=== PATIENT | female | born 1995 | race Two or more races ===

== ENCOUNTER 2018-10-14 14:08 | Emergency (ER) | payer SELFPAY ==
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
--- NOTE | 2018-10-14 16:17 | CR ---
Indication: Injury and pain Technique: Left femur 4 views Comparison: None Findings: Bones: Alignment is normal. No fractures or bone lesions. Joint spaces: Unremarkable. Soft tissues: Unremarkable. Impression: No sign of acute injury. Dictated by Jorge L Timmons MD @ Oct 14 2018 4:13PM Signed by Dr. Jorge L Timmons @ Oct 14 2018 4:15PM
== END 2018-10-14 15:50 | disposition home or self-care (01) ==
LOC: MW.ED 14:08
DX: M79.652 Pain in left thigh (principal); V49.49XA Driver injured in collision with other motor vehicles in traffic accident, initial encounter; Y92.410 Unspecified street and highway as the place of occurrence of the external cause
CPT/HCPCS: 73552-26-LT; 73552-LT; 99284-25

== ENCOUNTER 2018-11-17 15:45 | Emergency (ER) | payer SELFPAY ==
[2018-11-17] MEDS ORDERED: Albuterol/Ipratropium 3.0-0.5 MG/3 ML Neb Soln NEB ONE (16:01)
--- NOTE | 2018-11-17 16:06 | EDM.PDOC ---
ED HPI GENERAL MEDICAL PROBLEM - General Chief Complaint: Respiratory Problem Stated Complaint: SICK Time Seen by Provider: 11/17/18 15:56 - History of Present Illness INITIAL COMMENTS - FREE TEXT/NARRATIVE: HISTORY AND PHYSICAL: History of present illness: Patient's 22-year-old female presents with concern of cough and mild shortness of breath over last several days she also has had some pleuritic right-sided chest pain she denies pulmonary embolism risk factors denies oral contraceptives Review of systems: As per history of present illness and below otherwise all systems reviewed and negative. Past medical history: As per history of present illness and as reviewed below otherwise noncontributory. Surgical history: As per history of present illness and as reviewed below otherwise noncontributory. Social history: No reported history of drug or alcohol abuse. Family history: As per history of present illness and as reviewed below otherwise noncontributory. Physical exam: HEENT: Atraumatic, normocephalic, pupils reactive, negative for conjunctival pallor or scleral icterus, mucous membranes moist, throat clear, neck supple, nontender, trachea midline. Lungs: Clear to auscultation, breath sounds equal bilaterally, chest nontender. Heart: S1S2, regular, negative for clicks, rubs, or JVD. Abdomen: Soft, nondistended, nontender. Negative for masses or hepatosplenomegaly. Negative for costovertebral tenderness. Pelvis: Stable nontender. Genitourinary: Deferred. Rectal: Deferred. Extremities: Atraumatic, negative for cords or calf pain. Neurovascular unremarkable. Neuro: Awake, alert, oriented. Cranial nerves II through XII unremarkable. Cerebellum unremarkable. Motor and sensory unremarkable throughout. Exam nonfocal. Diagnostics: EKG chest x-ray Therapeutics: Albuterol ipratropium nebulizer Impression: #1 pleurisy #2 tracheobronchitis Definitive disposition and diagnosis as appropriate pending reevaluation and review of above. - Related Data Allergies Allergy/AdvReac Type Severity Reaction Status Date / Time Influenza Virus Vaccines Allergy Rash Verified 11/17/18 16:59 shellfish derived Allergy Rash Verified 11/17/18 16:59 Home Meds: Home Meds . [No Known Home Meds] 10/14/18 [History] Past Medical History - Past Health History Medical/Surgical History: Denies Medical/Surgical History Social & Family History - Family History Family Medical History: Noncontributory - Caffeine Use Caffeine Use: Reports: None ED ROS GENERAL - Review of Systems Review Of Systems: ROS reveals no pertinent complaints other than HPI. ED EXAM, GENERAL - Physical Exam Exam: See Below (dictation) Course - Vital Signs Last Recorded V/S: Last Vital Signs Temp 36.3 C 11/17/18 16:02 Pulse 95 11/17/18 16:02 Resp 20 11/17/18 16:02 BP 134/78 11/17/18 16:02 Pulse Ox 99 11/17/18 16:02 - Orders/Labs/Meds Orders: Active Orders 24 hr Category Date Time Status EKG 12 Lead [EKG Documentation Completion] [RC] STAT Care 11/17/18 16:04 Active RT Aerosol Therapy [RC] ASDIRECTED Care 11/17/18 16:01 Active Chest 1V Frontal [CR] Stat Exams 11/17/18 16:01 Taken Meds: Medications Discontinued Medications Generic Name Dose Route Start Last Admin Trade Name Josie PRN Reason Stop Dose Admin Albuterol/Ipratropium 3 ml 11/17/18 16:01 11/17/18 16:08 Duoneb 3.0-0.5 Mg/3 Ml NEB 11/17/18 16:02 3 ml ONETIME ONE Administration Departure - Departure Time of Disposition: 17:10 Disposition: Home, Self-Care 01 Condition: Good Clinical Impression: Tracheobronchitis - Discharge Information Referrals: PCP,Unknown [Primary Care Provider] - Forms: ED Department Discharge Additional Instructions: The following information is given to patients seen in the emergency department who are being discharged to home. This information is to outline your options for follow-up care. We provide all patients seen in our emergency department with a follow-up referral. The need for follow-up, as well as the timing and circumstances, are variable depending upon the specifics of your emergency department visit. If you don't have a primary care physician on staff, we will provide you with a referral. We always advise you to contact your personal physician following an emergency department visit to inform them of the circumstance of the visit and for follow-up with them and/or the need for any referrals to a consulting specialist. The emergency department will also refer you to a specialist when appropriate. This referral assures that you have the opportunity for followup care with a specialist. All of these measure are taken in an effort to provide you with optimal care, which includes your followup. Under all circumstances we always encourage you to contact your private physician who remains a resource for coordinating your care. When calling for followup care, please make the office aware that this follow-up is from your recent emergency room visit. If for any reason you are refused follow-up, please contact the [facility] emergency department at and asked to speak to the emergency department charge nurse. Z-Salazar albuterol as prescribed follow-up primary medical doctor and return as needed as discussed - My Orders Last 24 Hours: My Active Orders 11/17/18 16:01 RT Aerosol Therapy [RC] ASDIRECTED Chest 1V Frontal [CR] Stat 11/17/18 16:04 EKG 12 Lead [EKG Documentation Completion] [RC] STAT - Assessment/Plan Last 24 Hours: My Active Orders 11/17/18 16:01 RT Aerosol Therapy [RC] ASDIRECTED Chest 1V Frontal [CR] Stat 11/17/18 16:04 EKG 12 Lead [EKG Documentation Completion] [RC] STAT
--- NOTE | 2018-11-17 17:19 | CR ---
INDICATION: Cough for 3 weeks TECHNIQUE: Chest 1 view. COMPARISON: None available FINDINGS: The heart is normal in size. The lungs clear. The visualized osseous structures are unremarkable. IMPRESSION: No acute process. Dictated by Fina Narayanan MD @ 11/17/2018 5:18:26 PM Dictated by: Fina Narayanan MD @ 11/17/2018 17:18:31 (Electronically Signed)
== END 2018-11-17 17:24 | disposition home or self-care (01) ==
LOC: MW.ED 15:45
DX: J40 Bronchitis, not specified as acute or chronic (principal); R09.1 Pleurisy; Z88.7 Allergy status to serum and vaccine; Z91.013 Allergy to seafood
CPT/HCPCS: 71045; 71045-26; 93005; 94640; 99283-25; J7620-GY